=== PATIENT | male | born 1960 | race African-American/Black ===

== ENCOUNTER 2021-02-01 10:32 | Emergency (ER) | payer MEDICAID ==
[~2021-02-01] VITALS: Ht 185.4 cm; Wt 77.8 kg
[2021-02-01 10:50] VITALS: BP 128/69
--- NOTE | 2021-02-01 11:21 | NUR ---
PT TO IMAGING
[2021-02-01] MEDS ORDERED: IBUPROFEN 600 MG TABLET ONE (12:51)
[2021-02-01] MEDS ORDERED: IBUPROFEN 200 MG TABLET PO ONE (13:00)
--- NOTE | 2021-02-01 13:00 | NUR ---
dc instructions reviewed
== END 2021-02-01 13:08 | disposition home or self-care (01) ==
LOC: ED 11:33
DX: S39.012A Strain of muscle, fascia and tendon of lower back, initial encounter (principal); K02.9 Dental caries, unspecified; K04.7 Periapical abscess without sinus; M51.36 Other intervertebral disc degeneration, lumbar region; X58.XXXA Exposure to other specified factors, initial encounter; Y93.89 Activity, other specified; Y92.89 Other specified places as the place of occurrence of the external cause; Y99.8 Other external cause status
CPT/HCPCS: 72110; 99283